=== PATIENT | female | born 1985 | race Caucasian/White ===

== ENCOUNTER 2023-05-11 05:45 | Day surgery (SDC) | payer OTHER ==
[2023-05-04 16:13] VITALS: BP 144/89
[~2023-05-11] VITALS: Ht 180.3 cm; Wt 162.3 kg
[~2023-05-11 05:45] MED LIST: EFFEXOR XR150 MG PO; HYDROCODON-ACE1 EA11 PO; LAMICTAL100 MG PO; METFORMIN HCL1000 M1 PO; TOPIRAMATE25 MG PO; ZYRTEC-D TABLE1 EACH PO
[2023-05-11 05:59] VITALS: BP 144/96
--- NOTE | 2023-05-11 08:12 | NUR ---
05/11/23 0812 Tess,Lena 0806 PT ARRIVED TO PACU ON RA, RESP EVEN AND UNLABORED. PT DENIES CONCERNS. PT REPORTS 5/10 CRAMPING PAIN AND PLAN OF CARE DISCUSSED WITH RN AND HEDIS ABSTRACTOR. PT DENIES NAUSEA. PT AWAKE AND TALKING TO RN.
[2023-05-11 08:40] VITALS: BP 122/72
--- NOTE | 2023-05-11 14:24 | EKG ---
[facility] [address] [facility] [place] [address] Signed Normal sinus rhythm Cannot rule out Anterior infarct , age undetermined Abnormal ECG No previous ECGs available Confirmed by Kylah Garzon MD () on 05/11/2023 2:24:18 PM Electronically Signed By: KYLAH GARZON MD 05/11/23 1424 PATIENT NAME: LAURA CHAPMAN OZIEL Electrocardiogram DATE OF : 81 PHYSICIAN: KYLAH GARZON MD REPORT #: [id number] REPORT IS CONFIDENTIAL AND NOT TO BE RELEASED WITHOUT AUTHORIZATION
--- NOTE | 2023-05-12 06:42 | OR ---
[facility] [address] [place] [id number] Signed DATE OF OPERATION: 05/11/2023 SURGEON: Neida Baker DO PREOPERATIVE DIAGNOSES: 1. Abnormal uterine bleeding. 2. Morbid obesity. POSTOPERATIVE DIAGNOSES: 1. Abnormal uterine bleeding. 2. Morbid obesity. 3. Endometrial polyp. PROCEDURES PERFORMED: 1. Hysteroscopic polypectomy. 2. Dilation and curettage. FOXPRO DEVELOPER: None. ANESTHESIA: MAC. ESTIMATED BLOOD LOSS: 5 mL. FLUID DEFICIT: 200 mL. SPECIMEN: Endometrial curettings and polyp (see note sample spilled in the OR, but was retrieved and submitted). FINDINGS: Normal external genitalia, cervix and vagina. On hysteroscopy, thickened endometrium and endometrial polyp. Normal tubal ostia identified bilaterally. The polyp was excised and the endometrium was sampled, restoring normal anatomy at the end of the procedure. COMPLICATIONS: Electronically Signed By: NEIDA BAKER DO (JD) 05/12/23 0642 PATIENT NAME: LAURA CHAPMAN OPERATIVE REPORT DATE OF : [birth year] REPORT #: [id number] PHYSICIAN: NEIDA BAKER DO (JD) PCP: VIRGINIE LÓPEZ MD REPORT IS CONFIDENTIAL AND NOT TO BE RELEASED WITHOUT AUTHORIZATION [facility] [address] [place] [id number] Signed None. INDICATIONS: Ms. Chapman is a very pleasant 38-year-old female, who presents for abnormal uterine bleeding, hysteroscopy, D and C. Risks, benefits, and alternatives were discussed in detail with the patient. The patient understands and wishes to proceed with the procedure. TECHNIQUE: The patient was taken to the operating room where time-out was performed to confirm correct patient and correct procedure. MAC anesthesia was adequately established. The patient was prepped and draped in a dorsal lithotomy position with feet in Yellofin stirrups. ICPs were on and running. No preoperative antibiotics or heparin was indicated. The bladder was drained. A weighted speculum was placed in the vagina and the anterior lip of the cervix was grasped with the an Allis clamp. The cervix was easily and gently dilated using Hegar dilators to #7. An operative hysteroscope was placed in the cervical os and advanced under direct visualization into the uterine cavity. Thickened endometrium was noted with a large endometrial polyp noted at the right cornual region of the uterine cavity. Normal tubal ostia bilaterally were appreciated. MyoSure Lite device was selected and the polyp was excised under direct visualization without complication. Circumferential curettage was performed of the entire endometrium, restoring normal uterine anatomy. The hysteroscope was removed and at this point, it was noted that the outflow from the MyoSure Lite device had become loose from the collection sock and the specimen had spilled on the OR floor. Allis clamps were removed and the patient was awoken without difficulty. The sample was collected from the OR floor with pick ups and submitted to pathology. Sponge, needle and instrument count was correct x2 at the end of the procedure. Neida Baker DO JMELINDA/MOUNIKA /[id number] Electronically Signed By: CARRASQUILLO (JD) BAKER, DO 05/12/23 0642 PATIENT NAME: LAURA CHAPMAN OPERATIVE REPORT DATE OF : 81 REPORT #: [id number] PHYSICIAN: NEIDA BAKER DO (JD) PCP: VIRGINIE LÓPEZ MD REPORT IS CONFIDENTIAL AND NOT TO BE RELEASED WITHOUT AUTHORIZATION [address] [address] Signed Copies: ~ Electronically Signed By: CARRASQUILLO (JD) BAKER, DO 05/12/23 0642 PATIENT NAME: LAURA CHAPMAN OPERATIVE REPORT DATE OF : [birth year] REPORT #: [id number] PHYSICIAN: NEIDA BAKER DO (JD) PCP: VIRGINIE LÓPEZ MD REPORT IS CONFIDENTIAL AND NOT TO BE RELEASED WITHOUT AUTHORIZATION
--- NOTE | 2023-05-12 12:14 | PATH ---
[facility] [address] [place], [place] [address] Signed SPECIMEN(S): A ENDOMETRIAL CURETTINGS WITH POLYPS SPECIMEN SOURCE: A. ENDOMETRIAL CURETTINGS WITH POLYPS CLINICAL HISTORY: Abnormal uterine bleeding. FINAL PATHOLOGIC DIAGNOSIS: Endometrial curettings with polyps: - Proliferative endometrium with focal polypoid features. - Negative for hyperplasia or atypia. JVR:sm:C2NR MICROSCOPIC EXAMINATION: Histologic sections of all submitted blocks are examined by light microscopy. These findings, together with the gross examination, support the pathologic diagnosis. GROSS DESCRIPTION: The specimen, labeled and designated "Anthony, endometrial curettings with polyps," is received in formalin and consists of multiple fragments of red-pink soft tissue (2.5 x 2.1 x 0.4 cm in aggregate). The specimen is submitted entirely in cassette (A1). VB (under the direct supervision of a pathologist) The Gross Description was prepared using a voice recognition system. The report was reviewed for accuracy; however, sound-alike word errors, addition and/or deletions may occur. If there is any question about this report, please contact Client Services. PERFORMING LABORATORY: Technical component was performed by [facility], [address] [place] [id number] (CLIA# [id number]). Professional interpretation was performed by [facility], [address] [place] [id number] (CLIA#: [id number]). Diagnostician: Waldemar Mays MD Pathologist Electronically Signed 05/12/2023 PATIENT NAME: LAURA CHAPMAN PATHOLOGY DATE OF : [birth year] REPORT #: [id number] PHYSICIAN: JEN PATHOLOGY PCP: VIRGINIE LÓPEZ MD REPORT IS CONFIDENTIAL AND NOT TO BE RELEASED WITHOUT AUTHORIZATION [address] [address] Signed Copies: ~ PATIENT NAME: LAURA CHAPMAN PATHOLOGY DATE OF : [birth year] REPORT #: [id number] PHYSICIAN: JEN PATHOLOGY PCP: VIRGINIE LÓPEZ MD REPORT IS CONFIDENTIAL AND NOT TO BE RELEASED WITHOUT AUTHORIZATION
== END 2023-05-11 08:55 | disposition home or self-care (01) ==
LOC: DS 05:45 → OPS 05:45 → DS 07:30 → OPS 07:30
PROVIDERS: ATTEND Obstetrics & Gynecology
PROC: 0UDB8ZZ Extraction of Endometrium, Via Natural or Artificial Opening Endoscopic (ICD-10-PCS; principal; 2023-05-11 07:30)
DX: N93.9 Abnormal uterine and vaginal bleeding, unspecified (principal); N84.0 Polyp of corpus uteri; E66.01 Morbid (severe) obesity due to excess calories; Z68.42 Body mass index [BMI] 45.0-49.9, adult; Z88.2 Allergy status to sulfonamides; Z88.8 Allergy status to other drugs, medicaments and biological substances; Z79.899 Other long term (current) drug therapy
CPT/HCPCS: 00952; 93005; 93010; J0131; J1100; J1885; J2001; J2405; J2704; J3490